=== PATIENT | female | born 1980 | race Caucasian/White ===

== ENCOUNTER 2020-09-26 20:42 | Emergency (ER) | payer BC ==
[~2020-09-26] VITALS: Ht 175.3 cm; Wt 79.4 kg
[~2020-09-26 20:42] MED LIST: BIRTH CONTROL PO; Bactrim Ds Tab1 EACH PO; CEPH500 PO; CYCL10 PO; DIPATR PO; HYDACE5 PO; NAPR375 PO; NAPR500 PO; OXYACE5T PO; PROM25 PO; RXPROM25 PO
[2020-09-26] MEDS ORDERED: CYCL10 PO (21:24)
[2020-09-26] MEDS ORDERED: KETO10 PO (21:24)
== END 2020-09-26 21:39 | disposition home or self-care (01) ==
LOC: ER 20:42
DX: S39.012A Strain of muscle, fascia and tendon of lower back, initial encounter (principal); F17.210 Nicotine dependence, cigarettes, uncomplicated; Z88.1 Allergy status to other antibiotic agents; X50.9XXA Other and unspecified overexertion or strenuous movements or postures, initial encounter
CPT/HCPCS: 96372; 99282-25; J1100; J1885

== ENCOUNTER 2021-04-05 23:33 | Emergency (ER) | payer BC ==
[~2021-04-05 23:33] MED LIST changes: +KETO10 PO
== END 2021-04-06 00:05 | disposition left against medical advice (07) ==
LOC: ER 23:33
DX: Z53.21 Procedure and treatment not carried out due to patient leaving prior to being seen by health care provider (principal)

== ENCOUNTER → 2023-01-27 | Outpatient (CLI) | payer OTHER ==
[2023-01-29 05:12] LABS: CHLAMYDIA TRACHOMATIS, NAA Negative (Negative)
== END | disposition home or self-care (01) ==
LOC: LAB 11:40 → LAB SHORT 11:40
PROVIDERS: Family Medicine
DX: Z11.3 Encounter for screening for infections with a predominantly sexual mode of transmission (principal)
CPT/HCPCS: 87491; 87591

== ENCOUNTER → 2023-09-14 | Outpatient (CLI) | payer OTHER ==
[2023-09-14 18:25] LABS: BASOPHILS ABSOLUTE AUTO 0.05 K/mm3 (0.00-0.23); BASOPHILS PERCENT AUTO 1 % (0-2); EOSINOPHILS ABSOLUTE AUTO 0.19 K/mm3 (0.00-0.68); EOSINOPHILS PERCENT AUTO 2 % (0-6); Hematocrit 41.1 % (33.0-51.0); Hemoglobin 13.4 g/dL (11.5-16.0); IMMATURE GRAN ABSOLUTE AUTO 0.04 K/mm3 (0.00-0.10); IMMATURE GRAN PERCENT AUTO 1 % (0-1); LYMPHOCYTES ABSOLUTE AUTO 3.04 K/mm3 (0.84-5.20); LYMPHOCYTES PERCENT AUTO 36 % (21-46); MONOCYTES ABSOLUTE AUTO 0.67 K/mm3 (0.16-1.47); MONOCYTES PERCENT AUTO 8 % (4-13); Mean Corpuscular HGB 29.9 pg (26.0-34.0); Mean Corpuscular HGB Conc 32.6 g/dL (31.5-36.5); Mean Corpuscular Volume 92 fL (80-100); Mean Platelet Volume 9.9 fL (9.1-12.4); NEUTROPHILS ABSOLUTE AUTO 4.39 K/mm3 (1.96-9.15); NEUTROPHILS PERCENT AUTO 52 % (41-73); Platelet Count 329 K/mm3 (150-400); RDW Standard Deviation 47.1 fL (35.1-46.3); RETICULOCYTE COUNT PERCENT 1.18 % (0.50-2.50); Red Blood Cell Count 4.48 M/mm3 (3.80-5.20); White Blood Cell Count 8.38 K/mm3 (4.00-11.30)
[2023-09-14 18:51] LABS: C-REACTIVE PROTEIN, EXT RANGE 0.444 mg/dL (0.000-0.300)
[2023-09-14 18:54] LABS: CHOL/HDL RATIO 3.5; Cholesterol 223 mg/dL (50-200); HDL Cholesterol 64 mg/dL (>39); LDL/HDL RATIO 2.3; Low Density Lipoprotein Chol 148 mg/dL (0-110); Triglycerides 54 mg/dL (30-160); Very Low Density Lipoprot Chol 10 mg/dL (6-32)
[2023-09-14 19:01] LABS: Magnesium, Blood 2.2 mg/dL (1.6-2.4); Percent Saturation 18.8 % (15.0-50.0)
[2023-09-14 19:04] LABS: Albumin, Blood 3.9 g/dL (3.4-5.0); Albumin/Globulin Ratio 1.1 (0.8-1.8); Bilirubin, Total 0.7 mg/dL (0.1-1.0); Bun/Creatinine Ratio 16.1 (12.0-20.0); Calcium, Blood 8.8 mg/dL (8.5-10.1); Creatinine, Blood 0.93 mg/dL (0.40-1.00); Globulin, Blood 3.6 g/dL (2.2-4.0); Potassium, Blood 3.7 mmol/L (3.5-5.5); Thyroid Stimulating Hormone 1.58 uIU/mL (0.360-4.800); Total Protein, Blood 7.5 g/dL (6.4-8.2)
== END ==
LOC: LAB 16:58 → LAB SHORT 16:58
PROVIDERS: Student in an Organized Health Care Education/Training Program
DX: Z11.59 Encounter for screening for other viral diseases (principal); Z11.4 Encounter for screening for human immunodeficiency virus [HIV]; E55.9 Vitamin D deficiency, unspecified; M62.81 Muscle weakness (generalized); R53.83 Other fatigue
CPT/HCPCS: 80053; 80061; 82306; 82728; 83540; 83550; 83735; 84443; 85025; 85045; 85651; 86140; 86430; 87086

== ENCOUNTER 2025-07-14 21:55 | Emergency (ER) | payer OTHER ==
[~2025-07-14] VITALS: Ht 172.7 cm; Wt 77.1 kg
[2025-07-14 22:43] VITALS: BP 117/74
== END 2025-07-14 22:42 | disposition home or self-care (01) ==
LOC: ER 21:55
DX: S90.32XA Contusion of left foot, initial encounter (principal); W20.8XXA Other cause of strike by thrown, projected or falling object, initial encounter
CPT/HCPCS: 73630; 99283-25